=== PATIENT | female | born 1955 | race Asian ===

== ENCOUNTER 2018-08-16 09:35 | Emergency (ER) | payer OTHER ==
[~2018-08-16] VITALS: Ht 162.6 cm; Wt 63.5 kg
[2018-08-16 09:44] VITALS: Ht 162.6 cm; Wt 63.5 kg
[2018-08-16 11:46] VITALS: BP 130/77
== END 2018-08-16 11:45 | disposition home or self-care (01) ==
LOC: ED 09:35
DX: S20.219A Contusion of unspecified front wall of thorax, initial encounter (principal); I10 Essential (primary) hypertension; V43.52XA Car driver injured in collision with other type car in traffic accident, initial encounter; Y93.I9 Activity, other involving external motion; Y92.413 State road as the place of occurrence of the external cause; Y99.8 Other external cause status
CPT/HCPCS: J1885; Q0092

== ENCOUNTER 2018-09-02 18:36 | Emergency (ER) | payer OTHER ==
[~2018-09-02] VITALS: Ht 154.9 cm; Wt 46.3 kg
[2018-09-02 18:54] VITALS: Ht 154.9 cm; Wt 46.3 kg
[2018-09-02 21:07] LABS: PLATELET COUNT 268 x10^3mcL (130-400)
[2018-09-02 21:20] LABS: CALCIUM 8.6 mg/dL (8.5-10.1); CARBON DIOXIDE 28.5 mmol/L (21-32); CHLORIDE SERUM 100 mmol/L (98-107); CREATININE SERUM 0.6 mg/dL (0.6-1.0); GFR1 > 60 mL/min; GLUCOSE SERUM 108 mg/dL (74-106); POTASSIUM SERUM 3.5 mmol/L (3.5-5.1); SODIUM SERUM 136 mmol/L (136-145)
[2018-09-02 21:24] LABS: ALBUMIN 3.4 g/dL (3.4-5.0); ALKALINE PHOSPHATASE 62 U/L (46-116); ALT/SGPT 16 U/L (14-59); AST/SGOT 10 U/L (15-37); BILIRUBIN TOTAL 0.7 mg/dL (0.20-1.00); LIPASE 43 IU/L (73-393); RED CELL DISTRIBUTION WIDTH 15.2 % (11.5-14.5); TOTAL PROTEIN, SERUM 7.5 g/dL (6.4-8.2)
[2018-09-02 21:52] LABS: BAND NEUTROPHIL 12 % (0-10); METAMYELOCTE 3 % (0-2); MONOCYTE 16 % (0-7); SEGMENTED NEUTROPHILS 56 % (37-75)
[2018-09-02 21:55] LABS: PLATELET MORPHOLOGY PLATELETS NORMAL; ovalocyte/elliptocyte 1+; rbc morphology (normal/abnorm) ABNORMAL (NORMAL); tear drop cell (dacryocyte) 1+
[2018-09-02 23:58] VITALS: BP 103/65
== END 2018-09-02 23:58 | disposition home or self-care (01) ==
LOC: ED 18:36
PROVIDERS: Emergency Medicine
DX: K52.9 Noninfective gastroenteritis and colitis, unspecified (principal)
CPT/HCPCS: J1885; Q0162; Q9967

== ENCOUNTER 2018-09-03 16:12 | Inpatient (IN) | payer OTHER ==
[~2018-09-03] VITALS: Ht 147.3 cm; Wt 45.9 kg
[2018-09-03 18:20] LABS: CALCIUM 8.6 mg/dL (8.5-10.1); CARBON DIOXIDE 26.4 mmol/L (21-32); CHLORIDE SERUM 98 mmol/L (98-107); CREATININE SERUM 0.6 mg/dL (0.6-1.0); GFR1 > 60 mL/min; GLUCOSE SERUM 120 mg/dL (74-106); PLATELET COUNT 317 x10^3mcL (130-400); POTASSIUM SERUM 3.1 mmol/L (3.5-5.1); RED CELL DISTRIBUTION WIDTH 14.4 % (11.5-14.5); SODIUM SERUM 133 mmol/L (136-145)
[2018-09-03 18:24] LABS: ALKALINE PHOSPHATASE 56 U/L (46-116); ALT/SGPT 18 U/L (14-59); BILIRUBIN TOTAL 0.7 mg/dL (0.20-1.00); TOTAL PROTEIN, SERUM 7.2 g/dL (6.4-8.2)
[2018-09-03 18:26] LABS: ALBUMIN 3.2 g/dL (3.4-5.0)
[2018-09-03 18:35] LABS: UA SPECIFIC GRAVITY <=1.005 (1.005-1.035); microscopic required? YES; urine erythrocyte 1+ (NEGATIVE)
[2018-09-03 18:36] LABS: AST/SGOT 7 U/L (15-37)
[2018-09-03 19:00] LABS: BAND NEUTROPHIL 9 % (0-10); METAMYELOCTE 3 % (0-2); MONOCYTE 15 % (0-7); MYELOCYTE 1 % (0-2); SEGMENTED NEUTROPHILS 53 % (37-75)
[2018-09-03 19:03] LABS: ovalocyte/elliptocyte 1+; rbc morphology (normal/abnorm) ABNORMAL (NORMAL); tear drop cell (dacryocyte) 1+
[2018-09-03 19:04] LABS: PLATELET MORPHOLOGY FEW LARGE PLATELET
[2018-09-03 20:46] VITALS: BP 133/54
[2018-09-03 20:51] VITALS: Ht 147.3 cm; Wt 45.9 kg
[2018-09-04 05:22] VITALS: BP 106/62
[2018-09-04 05:55] LABS: PLATELET COUNT 278 x10^3mcL (130-400); RED CELL DISTRIBUTION WIDTH 13.5 % (11.5-14.5)
[2018-09-04 06:32] LABS: CALCIUM 8.1 mg/dL (8.5-10.1); CARBON DIOXIDE 25.3 mmol/L (21-32); CHLORIDE SERUM 105 mmol/L (98-107); CREATININE SERUM 0.4 mg/dL (0.6-1.0); GFR1 > 60 mL/min; GLUCOSE SERUM 140 mg/dL (74-106); POTASSIUM SERUM 4.1 mmol/L (3.5-5.1); SODIUM SERUM 137 mmol/L (136-145)
[2018-09-04 08:36] LABS: BAND NEUTROPHIL 9 % (0-10); BASOPHIL 0 % (0-2); MONOCYTE 15 % (0-7); MYELOCYTE 1 % (0-2); SEGMENTED NEUTROPHILS 46 % (37-75)
[2018-09-04 08:38] LABS: rbc morphology (normal/abnorm) ABNORMAL (NORMAL); target cell (codocyte) 2+
[2018-09-04 10:32] VITALS: BP 94/55
[2018-09-04 16:40] VITALS: BP 106/59
[2018-09-04 19:25] VITALS: BP 126/72
[2018-09-05 06:07] VITALS: BP 108/61
[2018-09-05 07:09] LABS: PLATELET COUNT 302 x10^3mcL (130-400)
[2018-09-05 07:15] LABS: RED CELL DISTRIBUTION WIDTH 14.8 % (11.5-14.5)
[2018-09-05 07:26] LABS: ALKALINE PHOSPHATASE 45 U/L (46-116); ALT/SGPT 15 U/L (14-59); AST/SGOT 1 U/L (15-37); BILIRUBIN TOTAL 0.5 mg/dL (0.20-1.00); CALCIUM 7.5 mg/dL (8.5-10.1); CARBON DIOXIDE 29.9 mmol/L (21-32); CHLORIDE SERUM 103 mmol/L (98-107); CREATININE SERUM 0.5 mg/dL (0.6-1.0); GFR1 > 60 mL/min; GLUCOSE SERUM 102 mg/dL (74-106); PHOSPHOROUS 1.6 mg/dL (2.5-4.9); SODIUM SERUM 137 mmol/L (136-145)
[2018-09-05 07:32] LABS: ALBUMIN 2.5 g/dL (3.4-5.0); TOTAL PROTEIN, SERUM 5.7 g/dL (6.4-8.2)
[2018-09-05 09:37] VITALS: BP 111/64
[2018-09-05 14:14] LABS: ATYPICAL LYMPH 8 %; BAND NEUTROPHIL 2 % (0-10); BASOPHIL 0 % (0-2); MONOCYTE 22 % (0-7); PLATELET MORPHOLOGY PLATELETS DECREASED; SEGMENTED NEUTROPHILS 38 % (37-75)
[2018-09-05 14:15] LABS: rbc morphology (normal/abnorm) ABNORMAL (NORMAL)
[2018-09-05 15:36] VITALS: BP 111/64
== END 2018-09-05 16:53 | disposition home or self-care (01) | DRG 249 ==
LOC: ED 16:12 → MU 20:04
PROVIDERS: Emergency Medicine; Internal Medicine Pulmonary Disease; ADMIT Internal Medicine Pulmonary Disease
DX: A09 Infectious gastroenteritis and colitis, unspecified (principal); K92.2 Gastrointestinal hemorrhage, unspecified; E87.6 Hypokalemia; I10 Essential (primary) hypertension; D64.9 Anemia, unspecified; M19.90 Unspecified osteoarthritis, unspecified site; Z98.82 Breast implant status; Z88.8 Allergy status to other drugs, medicaments and biological substances
CPT/HCPCS: J0744; J1650; J2270; J2405; J3480; J3490

== ENCOUNTER 2019-10-28 14:07 | Emergency (ER) | payer OTHER ==
[~2019-10-28] VITALS: Ht 147.3 cm; Wt 49.9 kg
[2019-10-28 14:13] VITALS: Ht 147.3 cm; Wt 49.9 kg
[2019-10-28 16:24] VITALS: BP 124/74
== END 2019-10-28 16:24 | disposition home or self-care (01) ==
LOC: ED 14:07
DX: R51 Headache (principal); M19.90 Unspecified osteoarthritis, unspecified site; I10 Essential (primary) hypertension
CPT/HCPCS: J1885

== ENCOUNTER 2020-02-19 00:05 | Emergency (ER) | payer OTHER ==
[~2020-02-19] VITALS: Ht 160 cm; Wt 49.9 kg
[2020-02-19 01:06] VITALS: Ht 160 cm; Wt 49.9 kg
[2020-02-19 01:22] LABS: BASOPHIL % 0.5 % (0-2); PLATELET COUNT 287 x10^3mcL (130-400); RED CELL DISTRIBUTION WIDTH 14.3 % (11.5-14.5)
[2020-02-19 01:31] LABS: CALCIUM 8.4 mg/dL (8.5-10.1); CARBON DIOXIDE 28.1 mmol/L (21-32); CHLORIDE SERUM 99 mmol/L (98-107); CREATININE SERUM 0.6 mg/dL (0.6-1.0); GFR1 > 60 mL/min; GLUCOSE SERUM 102 mg/dL (74-106); POTASSIUM SERUM 3.3 mmol/L (3.5-5.1); SODIUM SERUM 134 mmol/L (136-145)
[2020-02-19 01:35] LABS: ALBUMIN 4.1 g/dL (3.4-5.0); ALKALINE PHOSPHATASE 95 U/L (46-116); ALT/SGPT 62 U/L (14-59); AST/SGOT 71 U/L (15-37); LIPASE 119 IU/L (73-393)
[2020-02-19 05:33] VITALS: BP 130/75
== END 2020-02-19 05:33 | disposition home or self-care (01) ==
LOC: ED 00:05
PROVIDERS: Emergency Medicine
DX: K80.50 Calculus of bile duct without cholangitis or cholecystitis without obstruction (principal); I10 Essential (primary) hypertension; M19.90 Unspecified osteoarthritis, unspecified site
CPT/HCPCS: J2405; Q0092